=== PATIENT | female | born 1990 | race Caucasian/White ===

== ENCOUNTER 2021-11-27 09:45 | Outpatient (CLI) | payer BC ==
[~2021-11-27] VITALS: Ht 154.9 cm; Wt 81.4 kg
[2021-11-27] MEDS ORDERED: PRENATAL TABLET PO (09:56)
[2021-11-27] MEDS ORDERED: ABILIFY 10MG TA10 MG PO (09:56)
[2021-11-27] MEDS ORDERED: PROZAC 10MG10 MG PO (09:56)
[2021-11-27 10:45] VITALS: BP 122/61; PULSE 78; TEMP 98.5
== END 2021-11-27 12:10 | disposition home or self-care (01) ==
LOC: LDRO 09:45
DX: O47.1 False labor at or after 37 completed weeks of gestation (principal); Z3A.38 38 weeks gestation of pregnancy

== ENCOUNTER 2021-12-02 10:25 | Outpatient (CLI) | payer BC ==
[~2021-12-02] VITALS: Ht 154.9 cm; Wt 83.6 kg
[~2021-12-02 10:25] MED LIST: ABILIFY 10MG TA10 MG PO; PRENATAL TABLET PO; PROZAC 10MG10 MG PO
--- NOTE | 2021-12-02 10:35 | NUR ---
1035 - PATIENT AMBULATORY TO R ACCOMPANIED BY SPOUSE. PATIENT ORIENTED TO ROOM. PATIENT CHANGES INTO GOWN. PATIENT REPORTS CONTRACTIONS EVERY 3 MINUTES STARTING AT 0630 THAT HAVE SLOWED SINCE ARRIVING TO THE HOSPITAL. PATIENT REPORTS LOSING HER MUCUS YESTERDAY AND DENIES LEAKING OF FLUID. PATIENT REPORTS GOOD MOVEMENT. 1043 - PLAN OF CARE REVIEWED. PATIENT AGREEABLE. 1045 - PATIENT ON MONITOR - SEE FLOWSHEET. 1055 - SVE PERFORMED BY BATSHEVA REYEZ. -3. ORAL HYDRATION PROVIDED. PLAN OF CARE REVIEWED WITH PATIENT AND SPOUSE. CARE ONGOING.
[2021-12-02 11:00] VITALS: BP 120/75; PULSE 80; TEMP 98.5
--- NOTE | 2021-12-02 12:15 | NUR ---
1215 - PATIENT GIVEN DISCHARGE INSTRUCTIONS ON EARLY LABOR AND ENCOURAGED TO STAY HYDRATED. PATIENT AMBULATORY OFF UNIT WITH SPOUSE.
== END 2021-12-02 12:15 | disposition home or self-care (01) ==
LOC: LDRO 10:25 → COL.ER 10:25 → LDRO 12:15
DX: Z34.93 Encounter for supervision of normal pregnancy, unspecified, third trimester (principal); Z3A.39 39 weeks gestation of pregnancy

== ENCOUNTER 2021-12-03 04:42 | Inpatient (IN) | payer BC ==
[~2021-12-03] VITALS: Ht 154.9 cm; Wt 83.6 kg
[2021-12-03] VITALS (26 sets, daily range): BP systolic 65–131; BP diastolic 38–77; PULSE 71–96; TEMP 98–98.5
[2021-12-03 05:22] LABS: BASO % 0.4 % (0.0-2.0); EOS # 0.1 K/mm3 (0.0-0.7); GRAN # 8.6 K/mm3 (1.4-6.5); GRAN % 78.5 % (42.2-75.2); HEMOGLOBIN 11.6 g/dl (12.5-16.0); LYMPH # 1.3 K/mm3 (1.2-3.4); LYMPH % 12.2 % (20.0-51.0); MEAN CELL VOLUME 85 fl (80.0-100.0); MEAN CORPUSCULAR HEMOGLOBIN 29 pg (27-31); MEAN CORPUSCULAR HGB CONC 34 g/dl (33.0-37.0); MEAN PLATELET VOLUME 9.7 fl (7.4-10.4); MONO # 0.8 K/mm3 (0.1-0.6); MONO % 6.9 % (1.7-9.3); PLATELET COUNT 289 K/mm3 (130-400); RED BLOOD COUNT 4.01 M/mm3 (4.10-5.30)
[2021-12-03 05:25] LABS: HEMATOCRIT 34.2 % (37.0-47.0)
--- NOTE | 2021-12-03 09:35 | NUR ---
0935 - SVE PERFORMED BY BATSHEVA REYEZ. PATIENT COMPLETE. MD JUNIOR AND NURSERY RN NOTIFIED. 0958 - MD JUNIOR TO BEDSIDE. PATIENT INSTRUCTED ON PUSHING. 0959 - PATIENT PUSHING WITH CONTRACTIONS. GOOD MATERNAL EFFORT. 1002 - SPONTANEOUS VAGINAL DELIVERY OF INFANT. HEAD FOLLOWED BY BODY. BATSHEVA TOMLINSON ASSUMES CARE OF FOR NURSERY. 1005 - SPONTANEOUS DELIVERY OF INTACT PLACENTA. FUNDAL MASSAGE PERFORMED BY . PERINEUM INTACT. PITOCIN BOLUS INITIATED. PERICARE PERFORMED BY RN. CARE ONGOING.
[2021-12-04] MEDS ORDERED: IBU800 M1 PO (09:11)
[2021-12-04 09:30] VITALS: BP 116/82; PULSE 75; TEMP 98.2
[2021-12-04 17:18] VITALS: BP 116/71; PULSE 75; TEMP 97.5
[2021-12-04 19:28] VITALS: BP 122/75; PULSE 72; TEMP 98
[2021-12-05 08:00] VITALS: BP 138/89; PULSE 62; TEMP 97.4
--- NOTE | 2021-12-05 11:45 | NUR ---
DISCHARGE TEACHING COMPLETED. REVIEWED FOLLOW UP APPOINTMENT AND PRESCRIPTIONS. QUESTIONS ENCOURAGED AND ANSWERED.
== END 2021-12-05 12:12 | disposition home or self-care (01) | DRG 807 ==
LOC: LDRO 04:42 → LDR 04:58 → OB 04:58
PROVIDERS: Obstetrics & Gynecology; ADMIT Obstetrics & Gynecology
PROC: 10E0XZZ Delivery of Products of Conception, External Approach (ICD-10-PCS; principal; 2021-12-03)
DX: O99.344 Other mental disorders complicating childbirth (principal); Z37.0 Single live birth; F31.9 Bipolar disorder, unspecified; F41.9 Anxiety disorder, unspecified; F90.9 Attention-deficit hyperactivity disorder, unspecified type; O62.0 Primary inadequate contractions; O69.81X0 Labor and delivery complicated by cord around neck, without compression, not applicable or unspecified; Z3A.39 39 weeks gestation of pregnancy
CPT/HCPCS: J2590; J3010; J7120